=== PATIENT | female | born 1955 | race Caucasian/White ===

== ENCOUNTER 2021-10-03 13:12 | Emergency (ER) | payer MEDICARE, SELFPAY ==
[2021-10-03] VITALS (8 sets, daily range): BP systolic 130–183; BP diastolic 79–94; PULSE 67–85; RESP 16–17; TEMP 36.9; O2SAT 96–97; BMI 31.8
--- NOTE | 2021-10-03 13:43 | XR_ITS ---
FINAL REPORT CLINICAL HISTORY: cough FINDINGS: A single view of the chest was obtained. The heart is normal in size. The mediastinum is unremarkable. There are chronic changes at the lung bases. There is no pleural effusion. There is no pneumothorax. There is no acute osseous abnormality. IMPRESSION: No acute cardiopulmonary process. Reviewed, Interpreted and Dictated by Elvin Tyler MD Transcribed by Nallely Mcgowan Authenticated by Elvin Tyler MD on 10/03/2021 03:13:[address] [facility]
--- NOTE | 2021-10-03 13:54 | HMH.EDGENADL ---
ED Disposition Clinical Impression: Transaminitis, Liver masses Disposition: Home, Self-Care Condition on Discharge: Fair Instructions: Liver Function Tests Referrals: Provider,MD John [Primary Care Provider] - Rob Rick MD [Staff Physician] - - Critical Care Critical Care Time: No Attestation: On 10/03/21, the high probability of a clinically significant, sudden or life threatening deterioration of the following system(s) required my full and direct attention, intervention and personal management. The time I documented below is in addition to time spent performing reported procedures but includes the following listed in this critical care notation. Medical Decision Making - Medical Records Medical records reviewed: Yes: I reviewed the patient's medical records. - Kendrick Inquiry Pt receiving controlled substance: No Vital Signs: 10/03/21 13:13 10/03/21 14:11 10/03/21 15:41 Temperature 98.4 F Temperature Source Oral Pulse Rate 79 67 Pulse Rate [Left Radial] 85 Respiratory Rate 16 16 Blood Pressure 170/84 H 179/80 H Blood Pressure [Left Arm] 130/94 H Blood Pressure Mean 102 Blood Pressure Mean [Left Arm] 106 Blood Pressure Source [Left Arm] Automatic Cuff Blood Pressure Position [Left Arm] Sitting 02 Sat by Pulse Oximetry 97 97 97 Oxygen Delivery Method Room Air Room Air 10/03/21 16:01 10/03/21 16:30 Temperature Temperature Source Pulse Rate 81 76 Pulse Rate [Left Radial] Respiratory Rate 16 16 Blood Pressure 183/79 H 180/80 H Blood Pressure [Left Arm] Blood Pressure Mean 113 104 Blood Pressure Mean [Left Arm] Blood Pressure Source [Left Arm] Blood Pressure Position [Left Arm] 02 Sat by Pulse Oximetry 96 97 Oxygen Delivery Method - Lab Data Lab Results 10/03/21 14:07: WBC 7.2, RBC 5.28, Hgb 15.4, Hct 47.0, MCV 89.0, MCH 29.2, MCHC 32.7, RDW 13.2, Plt Count 381, MPV 7.6, Neut % (Auto) 73.0, Lymph % (Auto) 14.5, Bowman % (Auto) 9.2, Eos % (Auto) 1.5, Baso % (Auto) 1.8, Neut # (Auto) 5.3, Lymph # (Auto) 1.1, Bowman # (Auto) 0.7, Eos # (Auto) 0.1, Baso # (Auto) 0.1 10/03/21 14:07: Sodium 134 L, Potassium 4.1, Chloride 99, Carbon Dioxide 32 H, Anion Gap 7.1, BUN 13, Creatinine 0.80, Estimated Creat Clear 72, Estimated GFR 72, Est GFR ( Amer) 87, Glucose 108 H, Calcium 8.7, Total Bilirubin 0.6, AST 391 H*, ALT 196 H, Alkaline Phosphatase 206 H, Troponin I < 0.01, NT-Pro-B Natriuret Pep 440 H, Total Protein 7.1, Albumin 3.8, Globulin 3.3 H, Albumin/Globulin Ratio 1.2, TSH 1.58 10/03/21 14:07: SARS-CoV-2 (PCR) Not detected, Influenza A Untype (PCR) Not detected, Influenza Type B (PCR) Not detected 10/03/21 15:32: Urine Color Yellow, Urine Appearance Clear, Urine pH 6.0, Ur Specific [place] <= 1.005, Urine Protein Negative, Urine Glucose (UA) Negative, Urine Ketones Negative, Urine Blood Negative, Urine Nitrate Negative, Urine Bilirubin Negative, Urine Urobilinogen 0.2, Ur Leukocyte Esterase Trace, Urine RBC None, Urine WBC Occasional, Ur Squamous Epith Cells 3-5, Urine Bacteria None 10/03/21 16:58: Troponin I < 0.01 Result diagrams: 10/03/21 14:07 10/03/21 14:07 Orders (Tests/Meds): ORDERS Category Date Time Status US gallbladder Stat Exams 10/03/21 17:03 Ordered Hepatitis Panel (4) Stat Lab 10/03/21 15:15 Received Troponin I Q3H Lab 10/03/21 19:45 Ordered - CT Data CT Scan: Abdomen, Pelvis Time Received: 18:[address] Reviewed: Yes: I have reviewed the patient's CT results, I have viewed the radiologist's interpretation Findings Narrative: IMPRESSION: 1. Periaortic adenopathy and a multitude of hepatic masses highly concerning for extensive metastases, favor colonic source. Lower endoscopy is recommended for further evaluation. Correlation with infused abdomen and pelvis CT or PET/CT may be of value. 2. Abnormal gallbladder wall thickening which may be related to chronic cholecystitis. Gallbladder ultrasound may be beneficial
[2021-10-03 14:15] LABS: Coronavirus 19, PCR Not Detected (NotDetected); Influenza A, PCR Not Detected (NotDetected); Influenza B, PCR Not Detected (NotDetected)
[2021-10-03 14:23] LABS: Basophils # 0.1 K/mm3 (0-0.2); Basophils % 1.8 % (0.1-2.0); Eosinophils # 0.1 K/mm3 (0.0-0.4); Eosinophils % 1.5 % (0.1-12.0); Hemoglobin 15.4 g/dL (12.2-16.2); Lymphocytes # 1.1 K/mm3 (0.7-4.5); Lymphocytes % 14.5 % (10-50); Mean Corpuscular HGB Conc 32.7 g/dL (31.8-35.4); Mean Corpuscular Hemoglobin 29.2 pg (27.0-31.2); Mean Platelet Volume 7.6 fl (7.4-10.4); Monocytes # 0.7 K/mm3 (0.1-1.0); Monocytes % 9.2 % (1.7-9.3); Neutrophils # 5.3 K/mm3 (1.8-7.8); Platelet Count 381 K/mm3 (142-424); Red Blood Count 5.28 M/mm3 (4.20-5.40); Red Cell Distribution Width 13.2 % (11.5-17.5); White Blood Count 7.2 K/mm3 (4.8-10.8)
[2021-10-03 14:31] LABS: Alanine Aminotransferase 196 U/L (12-78); Albumin Level 3.8 g/dl (3.5-5.0); Albumin/Globulin Ratio 1.2 (1.1-1.8); Alkaline Phosphatase 206 U/L (38-126); Anion Gap 7.1 mEq/L (5-15); Aspartate Amino Transferase 391 U/L (14-36); Bilirubin,Total 0.6 mg/dl (0.2-1.3); Blood Urea Nitrogen 13 mg/dl (7-17); Calcium 8.7 mg/dl (8.4-10.2); Carbon Dioxide 32 mmol/L (22.0-30.0); Chloride 99 mmol/L (98-107); Creatinine Clearance Estimated 72 mL/min (50-200); Estimated Glomerular Filt Rate 72 ml/min (>60); GFR (African American) 87 ML/MIN (>60); Globulin 3.3 g/dL (1.3-3.2); Glucose 108 mg/dl (74-100); Potassium 4.1 mmoL/L (3.5-5.1); Sodium 134 mmol/L (136-145); Total Protein,Serum 7.1 g/dl (6.3-8.2)
--- NOTE | 2021-10-03 14:41 | CT_ITS ---
FINAL REPORT TECHNIQUE: Axial images through the abdomen and pelvis were performed without contrast. This study was performed with techniques to keep radiation doses as low as reasonably achievable, (ALARA). Individualized dose reduction techniques using automated exposure control or adjustment of mA and/or kV according to the patient's size were employed. CLINICAL HISTORY: transaminitis FINDINGS: Abdomen: The lung bases are clear.. Some of the masses are confluent measuring up to 7 cm in greatest dimension. Masses involve both lobes of the liver. The gallbladder has an abnormal appearance with gallbladder wall thickening measuring up to 1.1 cm. The spleen, pancreas, and adrenal glands are unremarkable. The kidneys demonstrate no stone, mass, or hydronephrosis. There is significant left periaortic adenopathy. Individual nodes measure up to 1.6 cm. These are particularly evident at the level of the left renal artery. There is scattered diverticula throughout the sigmoid colon. Pelvis: The urinary bladder is unremarkable. The appendix is not visualized. There is no pelvic mass or inflammation. IMPRESSION: 1. Periaortic adenopathy and a multitude of hepatic masses highly concerning for extensive metastases, favor colonic source. Lower endoscopy is recommended for further evaluation. Correlation with infused abdomen and pelvis CT or PET/CT may be of value. 2. Abnormal gallbladder wall thickening which may be related to chronic cholecystitis. Gallbladder ultrasound may be beneficial. Reviewed, Interpreted and Dictated by Elvin Tyler MD Transcribed by Nallely Mcgowan Authenticated by Elvin Tyler MD on 10/03/2021 04:51:21 PM [facility]
[2021-10-03 14:45] LABS: NT Pro Brain Natriuretic Pep. 440 pg/mL (0-125)
[2021-10-03 14:47] LABS: Troponin I < 0.01 ng/ml (0.00-0.034)
[2021-10-03 15:03] LABS: Thyroid Stimulating Hormone 1.58 uIU/mL (0.465-4.68)
[2021-10-03 15:39] LABS: Microscopic, Urine URINE MICROSCOPIC (MICROSCOPIC)
[2021-10-03 15:40] LABS: Appearance,Urine CLEAR (Clear); Bilirubin,Urine Negative (Negative); Blood, Urine Negative (Negative); Color,Urine YELLOW (Yellow); Glucose,Urine (UA) Negative (Negative); Ketones,Urine Negative (Negative); Leukocyte Esterase,Urine TRACE (Negative); Nitrate,Urine Negative (Negative); Protein,Urine Negative (Negative); Specific Gravity, Urine <= 1.005 (1.005-1.030); Urobilinogen,Urine 0.2 EU/dl (0.2)
--- NOTE | 2021-10-03 15:49 | PC.NURSE ---
pt to CT
[2021-10-03 15:55] LABS: WBC,Urine Occasional #/hpf (0-3)
--- NOTE | 2021-10-03 17:03 | US_ITS ---
PROCEDURE INFORMATION: Exam: US Abdomen, Limited; Right Upper Quadrant Exam date and time: 10/03/2021 5:03 PM Age: 66 years old Clinical indication: Abnormal findings; Abnormal radiologic finding of the abdomen; Radiologic exam and body structure: CT scan: Abdomen: Liver and gallbladder abnormal; Patient HX: Gallbladder u/s May be somewhat limited because patient at a sandwich at noon today; Additional info: Pain TECHNIQUE: Imaging protocol: US abdomen. Real time ultrasound with image documentation. Limited exam focused on the right upper quadrant. COMPARISON: CT ABDOMEN PELVIS WO CON 10/03/2021 3:53 PM FINDINGS: Liver: Multiple to many to count heterogeneous hypoechoic masses of the liver which confirm findings of the previous CT scan concerning for malignancy. Gallbladder: Echogenic foci dependently layer within the gallbladder fossa with posterior shadowing compatible with cholelithiasis. Abnormal thickening of the gallbladder wall measuring up to 3.9 mm in diameter, which could be related to gallstone cholecystitis versus malignancy. Common bile duct: Normal. No stones. No dilation. Pancreas: Visualized pancreas is unremarkable. Right kidney: Normal. No mass. No hydronephrosis. IMPRESSION: 1. Multiple to many to count heterogeneous hypoechoic masses of the liver which confirm findings of the previous CT scan concerning for malignancy. 2. Echogenic foci dependently layer within the gallbladder fossa with posterior shadowing compatible with cholelithiasis. Abnormal thickening of the gallbladder wall measuring up to 3.9 mm in diameter, which could be related to gallstone cholecystitis versus malignancy.
[2021-10-03 17:38] LABS: Troponin I < 0.01 ng/ml (0.00-0.034)
--- NOTE | 2021-10-03 17:50 | PC.NURSE ---
Surgery doctor has been paged
--- NOTE | 2021-10-03 17:56 | PC.NURSE ---
on the phone with
[2021-10-05 07:32] LABS: Hep A Ab, IgM Negative (Negative); Hepatitis B Core Antibody IgM Negative (Negative); Hepatitis B Surface Antigen Negative (Negative); Hepatitis C Antibody 0.1 s/co ratio (0.0-0.9)
== END 2021-10-03 18:48 | disposition home or self-care (01) ==
PROVIDERS: Emergency Provider Emergency Medicine
DX: R16.0 Hepatomegaly, not elsewhere classified (principal); R74.01 Elevation of levels of liver transaminase levels; R53.83 Other fatigue; Z20.822 Contact with and (suspected) exposure to COVID-19
CPT/HCPCS: 36415; 71045; 74176; 76705; 80053; 80074; 81001; 83880; 84443; 84484; 85025; 99283; C9803; U0003; U0005

== ENCOUNTER 2021-10-08 10:00 | Emergency (ER) | payer MEDICARE, SELFPAY ==
[2021-10-08 10:02] VITALS: BP 163/76; PULSE 84; RESP 18; TEMP 36.6; O2SAT 98; BMI 31.8
--- NOTE | 2021-10-08 10:14 | CT_ITS ---
FINAL REPORT CLINICAL HISTORY: weakness, stroke FINDINGS: Axial images of the head were obtained without contrast. Coronal reformatted images were also obtained. This study was performed with techniques to keep radiation doses as low as reasonably achievable (ALARA). Individualized dose reduction techniques using automated exposure control or adjustment of mA and/or kV according to the patient's size were employed. There is generalized age-appropriate atrophy. Periventricular low-attenuation areas are seen consistent with mild chronic ischemic changes. There is no evidence of intracranial hemorrhage or mass. There is no evidence of acute infarct. There is no evidence of shift of the midline structures. No skull abnormality is seen on the bone window images. IMPRESSION: Atrophy and mild periventricular chronic ischemic changes. No acute intracranial abnormality identified. Reviewed, Interpreted and Dictated by Moe Figueroa III, MD Transcribed by Bong Jeffery Authenticated by Moe Figueroa III, MD on 10/08/2021 10:53:30 AM [facility]
--- NOTE | 2021-10-08 10:14 | XR_ITS ---
FINAL REPORT TECHNIQUE: Single view chest CLINICAL HISTORY: cough COMPARISON: 10/03/2021 FINDINGS: A single view of the chest was obtained. The heart and mediastinum are within normal limits. The lungs are clear. There is no pneumothorax. Osseous structures are unremarkable. IMPRESSION: No acute cardiopulmonary process. Reviewed, Interpreted and Dictated by Moe Figueroa III, MD Transcribed by Andreina Geronimo Authenticated by Moe Figueroa III, MD on 10/08/2021 10:53:39 AM [facility]
--- NOTE | 2021-10-08 10:17 | PC.NURSE ---
rad notified for stroke protocol
--- NOTE | 2021-10-08 10:24 | PC.NURSE ---
gone to ct
--- NOTE | 2021-10-08 10:28 | PC.NURSE ---
back from ct
[2021-10-08 10:30] VITALS: BP 170/83; PULSE 83; RESP 18; O2SAT 97
[2021-10-08 10:55] LABS: Basophils # 0.1 K/mm3 (0-0.2); Basophils % 1.1 % (0.1-2.0); Eosinophils # 0.1 K/mm3 (0.0-0.4); Eosinophils % 0.7 % (0.1-12.0); Hematocrit 51.6 % (37.0-47.0); Hemoglobin 16.7 g/dL (12.2-16.2); Lymphocytes # 0.8 K/mm3 (0.7-4.5); Mean Corpuscular HGB Conc 32.4 g/dL (31.8-35.4); Mean Corpuscular Hemoglobin 28.9 pg (27.0-31.2); Mean Corpuscular Volume 89.2 fl (81-99); Mean Platelet Volume 7.9 fl (7.4-10.4); Monocytes # 0.7 K/mm3 (0.1-1.0); Monocytes % 8.6 % (1.7-9.3); Neutrophils # 6.3 K/mm3 (1.8-7.8); Neutrophils % 79.5 % (37.0-80.0); Platelet Count 392 K/mm3 (142-424); Red Blood Count 5.78 M/mm3 (4.20-5.40); Red Cell Distribution Width 13.2 % (11.5-17.5); White Blood Count 7.9 K/mm3 (4.8-10.8)
--- NOTE | 2021-10-08 10:58 | PC.NURSE ---
pt ambulated up to bathroom with no problems
[2021-10-08 11:02] LABS: Activated Partial Thrombo Time 26.3 seconds (22.8-30.6); INR 1.12 (0.9-1.1); Prothrombin Time 12.5 seconds (10.1-12.5)
--- NOTE | 2021-10-08 11:03 | ECG_ITS ---
APPROVED REPORT Exam: Resting ECG HR:78 bpm ECG Measurements Heart Rate 78 AXES SD 188 P 63 QRSd 82 QRS 68 QT 368 T 79 QTc 419 Conclusion Normal sinus rhythm Normal ECG Electronically signed by : Shamir Soliz MD 10/11/2021 13:49:50
--- NOTE | 2021-10-08 11:17 | HMH.EDWEAK ---
ED Disposition Clinical Impression: Transaminitis, Liver masses, Generalized weakness Disposition: Home, Self-Care Condition on Discharge: Good Instructions: DI for Muscle Weakness Referrals: Danielle Brown APRN [Primary Care Provider] - - Critical Care Critical Care Time: No Attestation: On 10/08/21, the high probability of a clinically significant, sudden or life threatening deterioration of the following system(s) required my full and direct attention, intervention and personal management. The time I documented below is in addition to time spent performing reported procedures but includes the following listed in this critical care notation. Medical Decision Making - Medical Records Medical records reviewed: Yes: I reviewed the patient's medical records. - Kendrick Inquiry Pt receiving controlled substance: No Vital Signs: 10/08/21 10:02 10/08/21 10:30 10/08/21 11:30 Temperature 98 F Temperature Source Oral Pulse Rate 83 74 Pulse Rate [Left Radial] 84 Respiratory Rate 18 18 18 Blood Pressure 170/83 H 182/92 H Blood Pressure [Right Arm] 163/76 H Blood Pressure Mean 97 116 Blood Pressure Mean [Right Arm] 105 02 Sat by Pulse Oximetry 98 97 96 Oxygen Delivery Method Room Air 10/08/21 12:00 10/08/21 12:31 Temperature Temperature Source Pulse Rate 71 76 Pulse Rate [Left Radial] Respiratory Rate 18 18 Blood Pressure 201/98 H 213/100 H Blood Pressure [Right Arm] Blood Pressure Mean 125 113 Blood Pressure Mean [Right Arm] 02 Sat by Pulse Oximetry 96 98 Oxygen Delivery Method - Lab Data Lab Results 10/08/21 10:42: WBC 7.9, RBC 5.78 H, Hgb 16.7 H, Hct 51.6 H, MCV 89.2, MCH 28.9, MCHC 32.4, RDW 13.2, Plt Count 392, MPV 7.9, Neut % (Auto) 79.5, Lymph % (Auto) 10.0, [place] % (Auto) 8.6, Eos % (Auto) 0.7, Baso % (Auto) 1.1, Neut # (Auto) 6.3, Lymph # (Auto) 0.8, [place] # (Auto) 0.7, Eos # (Auto) 0.1, Baso # (Auto) 0.1 10/08/21 10:42: PT 12.5, INR 1.12 H, APTT 26.3 10/08/21 10:42: Sodium 131 L, Potassium 4.0, Chloride 96 L, Carbon Dioxide 26, Anion Gap 13.0, BUN 11, Creatinine 0.80, Estimated Creat Clear 72, Estimated GFR 72, Est GFR ( Amer) 87, Glucose 154 H, Calcium 9.0, Total Bilirubin 1.8 H, AST 543 H*, ALT 214 H, Alkaline Phosphatase 312 H, Troponin I < 0.01, NT-Pro-B Natriuret Pep 232 H, Total Protein 7.7, Albumin 3.9, Globulin 3.8 H, Albumin/Globulin Ratio 1.0 L, Lipase 42 Result diagrams: 10/08/21 10:42 10/08/21 10:42 Orders (Tests/Meds): ED MEDICATIONS Discontinued Medications Generic Name Dose Route Start Last Admin Trade Name Freq PRN Reason Stop Dose Admin Sodium Chloride 1,000 mls @ 999 mls/hr 10/08/21 11:00 10/08/21 10:55 Sod Chlor 0.9% 1000ml Bag IV 10/08/21 12:00 999 mls/hr .[id number] MYRIAM Administration ORDERS Category Date Time Status Troponin I Q3H Lab 10/08/21 13:15 Ordered Troponin I Q3H Lab 10/08/21 16:15 Ordered - Radiology Data #1 Image(s): Chest Image Reviewed: Yes I reviewed the patient's radiology results, Yes I reviewed the patient's radiology image, Yes I have reviewed radiologist's interpretation IMPRESSION: Atrophy and mild periventricular chronic ischemic changes. No acute intracranial abnormality identified. - CT Data CT Scan: Head Time Received: 13:[address] Reviewed: Yes: I have reviewed the patient's CT results, I have viewed the radiologist's interpretation Findings Narrative: IMPRESSION: Atrophy and mild periventricular chronic ischemic changes. No acute intracranial abnormality identified. - ECG Data Tracing #1 I reviewed this ECG and interpreted as documented below: ECG initial impression date: 10/08/21 ECG initial impression time: 11:03 ECG normal with no acute: arrhythmias, ischemia, conduction abnormalities, chamber hypertrophy Normal Sinus Rhythm: Yes - Reevaluation(s) Time: 13:31 Reevaluation #1: On reevaluation, the patient is feeling much better. Repeat neurologi
[2021-10-08 11:30] VITALS: BP 182/92; PULSE 74; RESP 18; O2SAT 96
[2021-10-08 12:00] VITALS: BP 201/98; PULSE 71; RESP 18; O2SAT 96
[2021-10-08 12:06] LABS: Alanine Aminotransferase 214 U/L (12-78); Albumin Level 3.9 g/dl (3.5-5.0); Alkaline Phosphatase 312 U/L (38-126); Aspartate Amino Transferase 543 U/L (14-36); Bilirubin,Total 1.8 mg/dl (0.2-1.3); Blood Urea Nitrogen 11 mg/dl (7-17); Carbon Dioxide 26 mmol/L (22.0-30.0); Chloride 96 mmol/L (98-107); Creatinine Clearance Estimated 72 mL/min (50-200); Estimated Glomerular Filt Rate 72 ml/min (>60); GFR (African American) 87 ML/MIN (>60); Globulin 3.8 g/dL (1.3-3.2); Glucose 154 mg/dl (74-100); Lipase 42 U/L (23-300); Sodium 131 mmol/L (136-145); Total Protein,Serum 7.7 g/dl (6.3-8.2)
[2021-10-08 12:18] LABS: NT Pro Brain Natriuretic Pep. 232 pg/mL (0-125)
[2021-10-08 12:19] LABS: Troponin I < 0.01 ng/ml (0.00-0.034)
[2021-10-08 12:31] VITALS: BP 213/100; PULSE 76; RESP 18; O2SAT 98
[2021-10-08 13:57] VITALS: BP 146/110; PULSE 96; RESP 18; TEMP 36.6; O2SAT 98
[2021-10-08 15:47] LABS: Basophils # 0.1 K/mm3 (0-0.2); Basophils % 0.8 % (0.1-2.0); Eosinophils % 0.2 % (0.1-12.0); Hematocrit 49.5 % (37.0-47.0); Hemoglobin 15.6 g/dL (12.2-16.2); Lymphocytes # 1.2 K/mm3 (0.7-4.5); Mean Corpuscular HGB Conc 31.5 g/dL (31.8-35.4); Mean Corpuscular Hemoglobin 28.4 pg (27.0-31.2); Mean Corpuscular Volume 90.1 fl (81-99); Mean Platelet Volume 9.4 fl (7.4-10.4); Monocytes # 1.1 K/mm3 (0.1-1.0); Monocytes % 11.3 % (1.7-9.3); Neutrophils % 74.8 % (37.0-80.0); Platelet Count 365 K/mm3 (142-424); Red Blood Count 5.49 M/mm3 (4.20-5.40); Red Cell Distribution Width 13.3 % (11.5-17.5); White Blood Count 9.4 K/mm3 (4.8-10.8)
[2021-10-08 15:53] LABS: Activated Partial Thrombo Time 26.3 seconds (22.8-30.6); INR 1.07 (0.9-1.1)
[2021-10-08 15:58] LABS: Blood Urea Nitrogen 11 mg/dl (7-17); Creatinine Clearance Estimated 72 mL/min (50-200); Estimated Glomerular Filt Rate 84 ml/min (>60); GFR (African American) 102 ML/MIN (>60)
[2021-10-08 16:30] LABS: Troponin I < 0.01 ng/ml (0.00-0.034)
== END 2021-10-08 13:58 | disposition home or self-care (01) ==
PROVIDERS: Surgery; Emergency Provider Emergency Medicine; PCP Nurse Practitioner Family
DX: R74.01 Elevation of levels of liver transaminase levels (principal); R16.0 Hepatomegaly, not elsewhere classified
CPT/HCPCS: 70450; 71045; 80053; 82565; 83690; 83880; 84484; 84520; 85025; 85610; 85730; 93005; 96365; 99283